=== PATIENT | female | born 1960 | race Caucasian/White ===

== ENCOUNTER 2018-05-08 15:19 | Emergency (ER) | payer OTHER, BC ==
[~2018-05-08] VITALS: Ht 162.6 cm; Wt 76.2 kg
--- NOTE | 2018-05-08 15:19 | NUR ---
BIBRA 59 FROM HOME C/O ALTERED MENTAL STATUS POSSIBLE POST SEIZURE, UNWITNESSED, PT HAS HX OF SEIZURE, + ORAL TRAUMA ON R SIDE OF THE TONGUE, TO ER BED 4, HOOKED TO MONITOR, CHANGED TO GOWN, PROVIDED W WARM BLANKET, FAMILY AT BEDSIDE, AWAITING MD COREA
--- NOTE | 2018-05-08 15:20 | NUR ---
SEIZURE PRECAUTION APPLIED
--- NOTE | 2018-05-08 15:47 | NUR ---
DR DIETRICH AT BEDSIDE FOR EVAL.
[2018-05-08] MEDS ORDERED: IV NS 0.9% 500 ML BAG IV ONE (16:00)
[2018-05-08 16:14] LABS: BASOPHILS # (AUTO) 0.1 /CMM (0.0-0.2); BASOPHILS % (AUTO) 0.6 % (0.0-2.0); EOSINOPHILS % (AUTO) 0.5 % (0.0-6.0); HEMATOCRIT 39 % (33-45); HEMOGLOBIN 13.1 g/dL (11.5-14.8); LYMPHOCYTES # (AUTO) 1.1 /CMM (0.8-4.8); LYMPHOCYTES % (AUTO) 12.4 % (20.0-44.0); MEAN CORPUSCULAR HGB CONC 33 g/dl (31.0-36.0); MEAN CORPUSCULAR VOLUME 89 fL (82-100); MONOCYTES # (AUTO) 0.4 /CMM (0.1-1.30); MONOCYTES % (AUTO) 4.9 % (2.0-12.0); NEUTROPHILS # (AUTO) 7.3 /CMM (1.8-8.9); NEUTROPHILS % (AUTO) 81.6 % (43.0-81.0); PLATELET COUNT (AUTO) 242 /CMM (150-450); RED BLOOD CELL COUNT(AUTO) 4.39 MIL/uL (4.0-5.2); WHITE BLOOD COUNT (AUTO) 8.9 K/uL (4.3-11.0)
[2018-05-08 16:19] LABS: POTASSIUM 4.2 mmol/L (3.5-5.1)
[2018-05-08] MEDS ORDERED: PHEN100C4 PO (16:23)
--- NOTE | 2018-05-08 17:05 | NUR ---
CALLED LAB TO ASK HOW LONG BEFORE WE HAVE RESULTS FOR DILANTIN LEVELS. THEY WILL CALL BACK.
--- NOTE | 2018-05-08 17:09 | NUR ---
LAB REPLIED THAT A RESULTS WILL BE READY IN 10 MIN
[2018-05-08 17:16] LABS: PHENYTOIN (DILANTIN) 13.7 ug/ml (10.0-20.0)
--- NOTE | 2018-05-08 18:02 | NUR ---
IV removed. Catheter intact and site benign. Pressure and 4x4 applied to site. No bleeding noted.Patient discharged to home in stable condition. Written and verbal after care instructions given. Patient verbalizes understanding of instruction.
[2018-05-08 18:04] VITALS: BP 119/71
== END 2018-05-08 18:04 | disposition home or self-care (01) ==
LOC: ER 15:22
DX: R56.9 Unspecified convulsions (principal); Z60.2 Problems related to living alone
CPT/HCPCS: 36415; 80048; 80185; 85025; 99283; J7040

== ENCOUNTER 2019-01-14 21:50 | Emergency (ER) | payer OTHER, BC ==
[~2019-01-14] VITALS: Ht 162.6 cm; Wt 77.1 kg
[~2019-01-14 21:50] MED LIST: PHEN100C4 PO
[2019-01-14 22:29] LABS: BASOPHILS # (AUTO) 0.1 /CMM (0.0-0.2); BASOPHILS % (AUTO) 0.7 % (0.0-2.0); HEMATOCRIT 36 % (33-45); HEMOGLOBIN 11.9 g/dL (11.5-14.8); LYMPHOCYTES # (AUTO) 2.5 /CMM (0.8-4.8); LYMPHOCYTES % (AUTO) 28.8 % (20.0-44.0); MEAN CORPUSCULAR HGB CONC 33 g/dl (31.0-36.0); MEAN CORPUSCULAR VOLUME 87 fL (82-100); MONOCYTES # (AUTO) 0.6 /CMM (0.1-1.30); MONOCYTES % (AUTO) 6.5 % (2.0-12.0); NEUTROPHILS # (AUTO) 5.5 /CMM (1.8-8.9); PLATELET COUNT (AUTO) 228 /CMM (150-450); RED BLOOD CELL COUNT(AUTO) 4.17 MIL/uL (4.0-5.2); WHITE BLOOD COUNT (AUTO) 8.8 K/uL (4.3-11.0)
[2019-01-14 22:37] LABS: CALCIUM, SERUM 9.3 mg/dL (8.5-10.1); CARBON DIOXIDE 25 mmol/L (21-32); CHLORIDE 107 mmol/L (98-107); CREATININE 1.2 mg/dL (0.6-1.3); GLUCOSE 138 mg/dL (74-106); POTASSIUM 4.1 mmol/L (3.5-5.1); SODIUM SERUM 143 mmol/L (136-145); UREA NITROGEN, BLOOD 21 mg/dL (7-18)
--- NOTE | 2019-01-14 22:40 | NUR ---
PT BIB EMS, C/O SEIZURES WITNESSED BY SON, REPORTS URINARY INCONTINENCE SEIZURE PRECAUTIONS, VITALS STABLE
[2019-01-14 22:42] LABS: ALANINE AMINOTRANSFERASE 17 U/L (12-78); ALBUMIN 3.5 g/dL (3.4-5.0); ALCOHOL, BLOOD < 3 mg/dL (0-0); ALKALINE PHOSPHATASE 96 U/L (46-116); ASPARTATE AMINOTRANSFERASE 17 U/L (15-37); BILIRUBIN,TOTAL 0.2 mg/dL (0.2-1.0); TOTAL PROTEIN, SERUM 7.3 g/dL (6.4-8.2)
--- NOTE | 2019-01-14 23:03 | NUR ---
PT REFUSING XRAY
--- NOTE | 2019-01-14 23:32 | NUR ---
Patient discharged to home in stable condition. Written and verbal after care instructions given. Patient verbalizes understanding of instruction.
[2019-01-14 23:33] VITALS: BP 147/47
== END 2019-01-14 23:34 | disposition home or self-care (01) ==
LOC: ER 21:52
DX: G40.909 Epilepsy, unspecified, not intractable, without status epilepticus (principal); Z60.2 Problems related to living alone; Z79.899 Other long term (current) drug therapy
CPT/HCPCS: 36415; 70450-TC; 80048-TC; 80076-TC; 82962-TC; 85025-TC; 85730-TC; G0480